=== PATIENT | female | born 1995 | race Caucasian/White ===

== ENCOUNTER 2018-09-06 13:10 | Emergency (ER) | payer OTHER ==
[2018-09-06] MEDS ORDERED: KETOROLAC 15 MG/1 ML SDV IVP ONE (13:56)
[2018-09-06] MEDS ORDERED: NS 1,000 ML IV ONE (13:56)
[2018-09-06] MEDS ORDERED: DEXAMETHASONE 10 MG/ML VIAL IVP ONE (13:56)
[2018-09-06 14:20] LABS: PLATELET COUNT 213 10^3/uL (150-400)
[2018-09-06] MEDS ORDERED: IOPAMIDOL (ISOVUE-300) 100 ML BTL ONE (14:50)
--- NOTE | 2018-09-06 16:26 | EDPHY ---
H & P Stated Complaint: swollen left lymph, dx with infection at yesterday, not feeling better Time Seen by Provider: 09/06/18 13:49 HPI/ROS: CHIEF COMPLAINT: Cervical adenopathy HISTORY OF PRESENT ILLNESS: 23-year-old female generally healthy, immunocompetent, complaining of left submandibular adenopathy. Seen by an urgent care yesterday and started on Keflex informed that if the area was not resolved or got any larger to go to the emergency department. She feels that the area is larger. She denies dysphagia or odynophagia. Denies change in voice or hoarse voice. Denies nuchal rigidity. Denies headache. REVIEW OF SYSTEMS: 10 systems reviewed and negative with the exception of the elements mentioned in the history of present illness PAST MEDICAL & SURGICAL HISTORY: No pertinent medical or surgical history SOCIAL HISTORY: Student. Nonsmoker PHYSICAL EXAM (Prior to examination, patient consented to physical exam, hands were washed and my usual and customary physical exam procedures followed) 1) GENERAL: Well-developed, well-nourished, alert and oriented. Appears to be in no acute distress. 2) HEAD: Normocephalic, atraumatic 3) HEENT: Pupils equal, round, reactive to light bilaterally. Sclera anicteric. Nasopharynx, oropharynx, clear, no lesions. Moist Mucous membranes. No tonsillar enlargement or exudate. Normal voice with no hoarseness. No trismus no drooling. No facial lesions or vesicles. Ears bilaterally with normal tympanic membranes. No evidence of otitis media otitis externa 4) NECK: Full range of motion, no meningeal signs. Left submandibular mass, tender with no overlying skin changes. No crepitus. Floor of mouth and submental region are nontender. No induration. 5) LUNGS: Clear auscultation bilaterally, no wheezes, no rhonchi, no retractions. 6) HEART: Regular rate and rhythm, no murmur, no heave, no gallop. 7) ABDOMEN: No guarding, no rebound, no focal tenderness, negative McBurney's, negative Corcoran's, negative Rovsing's, negative peritoneal sign, 8) MUSCULOSKELETAL: Moving all extremities, no focal areas of tenderness, no obvious trauma. No peripheral edema or discoloration. 9) BACK: No CVA tenderness, no midline vertebral tenderness, no fluctuance, no step-off, no obvious trauma, no visual or palpable abnormality. 10) SKIN: No rash, no petechiae. 11) Psychiatric: Patient is oriented X 3, there is no agitation. DIFFERENTIAL DIAGNOSIS: In no particular order include but limited to mononucleosis, sialoadenitis, adenopathy, abscess, Arthur's angina - Personal History LMP (Females 10-55): 8-14 Days Ago Current Tetanus Diphtheria and Acellular Pertussis (TDAP): Yes - Medical/Surgical History Hx Asthma: Yes Hx Chronic Respiratory Disease: No Hx Diabetes: No Hx Cardiac Disease: No Hx Renal Disease: No Hx Cirrhosis: No Hx Alcoholism: No Hx HIV/AIDS: No Hx Splenectomy or Spleen Trauma: No - Social History Smoking Status: Never smoked Constitutional: Initial Vital Signs Temperature (C) 37.6 C 09/06/18 13:24 Heart Rate 79 09/06/18 13:24 Respiratory Rate 16 09/06/18 13:24 Blood Pressure 118/69 09/06/18 13:24 O2 Sat (%) 97 09/06/18 13:24 O2 Delivery Mode Room Air Allergies/Adverse Reactions: No Known Allergies Allergy (Unverified 09/06/18 13:24) Home Medications: Medication Instructions Recorded CEPHALEXIN 09/06/18 methylPREDNISolone [Medrol Dose 4 mg PO DAILY #1 ea 09/06/18 Abdiaziz] Medical Decision Making ED Course/Re-evaluation: 4:24 p.m.: Re-evaluation. Discussed with the patient imaging results showing no evidence of abscess. Normal white count. Her airway is patent. She was given dose of Decadron in the ER. At this time I think the patient can be safely discharged home with close follow-up. Recommend follow up with ENT. She has no evidence of airway compromise. She feels comfortable being discharged. Care of patient under supervision of secondary supervising physician Dr Oakley . - Data Points Laboratory Results: Laboratory Results 09/06/18 14:09 09/06/18 14:09 09/06/18 09/06/18 09/06/18 14:09 14:09 14:09 WBC 3.48 10^3/uL L 10^3/uL (3.80-9.50) RBC 4.50 10^6/uL 10^6/uL (4.18-5.33) Hgb 14.3 g/dL g/dL (12.6-16.3) Hct 42.3 % % (38.0-47.0) MCV 94.0 fL fL (81.5-99.8) MCH 31.8 pg pg (27.9-34.1) MCHC 33.8 g/dL g/dL (32.4-36.7) RDW 11.9 % % (11.5-15.2) Plt Count 213 10^3/uL 10^3/uL (150-400) MPV 10.4 fL fL (8.7-11.7) Neut % (Auto) 44.7 % % (39.3-74.2) Lymph % (Auto) 37.1 % % (15.0-45.0) [place] % (Auto) 16.7 % H % (4.5-13.0) Eos % (Auto) 0.6 % % (0.6-7.6) Baso % (Auto) 0.6 % % (0.3-1.7) Nucleat RBC Rel Count 0.0 % % (0.0-0.2) Absolute Neuts (auto) 1.56 10^3/uL L 10^3/uL (1.70-6.50) Absolute Lymphs (auto) 1.29 10^3/uL 10^3/uL (1.00-3.00) Absolute Monos (auto) 0.58 10^3/uL 10^3/uL (0.30-0.80) Absolute Eos (auto) 0.02 10^3/uL L 10^3/uL (0.03-0.40) Absolute Basos (auto) 0.02 10^3/uL 10^3/uL (0.02-0.10) Absolute Nucleated RBC 0.00 10^3/uL 10^3/uL (0-0.01) Immature Gran % 0.3 % % (0.0-1.1) Immature Gran # 0.01 10^3/uL 10^3/uL (0.00-0.10) Sodium 139 mEq/L mEq/L (135-145) Potassium 4.1 mEq/L mEq/L (3.5-5.2) Chloride 104 mEq/L mEq/L (97-110) Carbon Dioxide 24 mEq/l mEq/l (22-31) Anion Gap 11 mEq/L mEq/L (6-14) BUN 14 mg/dL mg/dL (7-23) Creatinine 0.8 mg/dL mg/dL (0.6-1.0) Estimated GFR > 60 Glucose 85 mg/dL mg/dL (70-100) Calcium 9.1 mg/dL mg/dL (8.5-10.4) Beta HCG, Qual NEGATIVE Monoscreen NEGATIVE (NEGATIVE) Medications Given: Discontinued Medications Dexamethasone (Decadron Injection) 10 mg IVP EDNOW ONE Stop: 09/06/18 13:57 Last Admin: 09/06/18 14:08 Dose: 10 mg Sodium Chloride (Ns) 1,000 mls @ 0 mls/hr IV ONCE ONE PRN Reason: Wide Open Stop: 09/06/18 13:57 Last Admin: 09/06/18 14:09 Dose: 1,000 mls Ketorolac Tromethamine (Toradol) 15 mg IVP EDNOW ONE Stop: 09/06/18 13:57 Last Admin: 09/06/18 14:08 Dose: 15 mg Departure - Departure Disposition: Home, Routine, Self-Care Clinical Impression: Adenopathy Condition: Good Instructions: Lymphadenopathy (ED) Additional Instructions: Return to the ER immediately if you cannot swallow, have drooling, fevers, neck stiffness, cannot open your jaw, or any other symptoms that concern you. Referrals: Fermin Mathews MD [Medical Doctor] - As per Instructions Prescriptions: methylPREDNISolone [Medrol Dose Abdiaziz] 4 mg PO DAILY #1 ea
[2018-09-06 16:35] VITALS: BP 115/61
== END 2018-09-06 16:34 | disposition home or self-care (01) ==
DX: R59.0 Localized enlarged lymph nodes (principal)
CPT/HCPCS: 96374; J1100; J1885; Q9967